=== PATIENT | male | born 1980 | race Caucasian/White ===

== ENCOUNTER → 2021-10-12 | Outpatient (CLI) | payer MEDICARE, MEDICAID | LOC: M RAD 09:06 | PROVIDERS: ATTEND Nurse Practitioner Family | DX: I10 Essential (primary) hypertension (principal); N28.89 Other specified disorders of kidney and ureter ==

== ENCOUNTER → 2024-02-28 | Outpatient (REF) | payer MEDICARE, MEDICAID | LOC: M LAB REF 14:37 | PROVIDERS: ATTEND Internal Medicine Nephrology | DX: E26.89 Other hyperaldosteronism (principal) ==